=== PATIENT | male | born 1995 | race Caucasian/White ===

== ENCOUNTER 2017-03-05 20:26 | Emergency (ER) | payer BC ==
[2017-03-06 02:54] LABS: HEMOGLOBIN 15.2 gm/dl (14.0-17.5); RED BLOOD COUNT 4.82 M/UL (4.20-5.50); WHITE BLOOD COUNT 9.8 K/UL (4.5-11.0)
[2017-03-06 03:26] LABS: BUN/CREATININE RATIO 20 (0-10)
== END 2017-03-06 04:25 | disposition home or self-care (01) ==
LOC: ER1 20:26
PROVIDERS: Emergency Medicine
DX: L03.116 Cellulitis of left lower limb (principal); F17.210 Nicotine dependence, cigarettes, uncomplicated
CPT/HCPCS: 36415; 73630; 80053; 85025; 86140; 87040; 99283